=== PATIENT | male | born 1960 | race Caucasian/White ===

== ENCOUNTER 2016-12-19 14:25 | Emergency (ER) | payer OTHER ==
[2016-12-19 17:26] LABS: HEMOGLOBIN 14.6 gm/dl (14.0-17.5); RED BLOOD COUNT 4.59 M/UL (4.20-5.50); WHITE BLOOD COUNT 10.9 K/UL (4.5-11.0)
[2016-12-19 17:46] LABS: BUN/CREATININE RATIO 11 (0-10)
== END 2016-12-19 22:35 | disposition home or self-care (01) ==
LOC: ER1 14:25
PROVIDERS: Specialist/Technologist Athletic Trainer
DX: R07.2 Precordial pain (principal); I25.2 Old myocardial infarction; Z87.891 Personal history of nicotine dependence; Z95.5 Presence of coronary angioplasty implant and graft; Z79.02 Long term (current) use of antithrombotics/antiplatelets; Z79.899 Other long term (current) drug therapy
CPT/HCPCS: 36415; 71010; 80053; 82550; 82553; 83874; 84484; 85025; 93005; 99285

== ENCOUNTER → 2020-09-16 | Day surgery (SDC) | payer OTHER ==
[~2020-09-16] MED LIST: CLOPIDOGREL75 MG PO; COREG3.125 MG PO; LIPITOR10 MG PO; LISINOPRIL10 MG PO; PREDNISONE20 MG PO
== END | disposition home or self-care (01) ==
LOC: OR 06:44
PROVIDERS: Internal Medicine Gastroenterology
PROC: 0DBN8ZX Excision of Sigmoid Colon, Via Natural or Artificial Opening Endoscopic, Diagnostic (ICD-10-PCS; 2020-09-16)
PROC: 0D758ZZ Dilation of Esophagus, Via Natural or Artificial Opening Endoscopic (ICD-10-PCS; principal; 2020-09-16 10:00)
PROC: 0DBK8ZX Excision of Ascending Colon, Via Natural or Artificial Opening Endoscopic, Diagnostic (ICD-10-PCS; 2020-09-16 10:00)
DX: Z12.11 Encounter for screening for malignant neoplasm of colon (principal); K22.2 Esophageal obstruction; K44.9 Diaphragmatic hernia without obstruction or gangrene; K64.1 Second degree hemorrhoids; D12.2 Benign neoplasm of ascending colon; D12.5 Benign neoplasm of sigmoid colon; K21.9 Gastro-esophageal reflux disease without esophagitis; I10 Essential (primary) hypertension; I25.10 Atherosclerotic heart disease of native coronary artery without angina pectoris; Z95.5 Presence of coronary angioplasty implant and graft; Z88.6 Allergy status to analgesic agent; Z79.82 Long term (current) use of aspirin; Z79.899 Other long term (current) drug therapy; Z87.891 Personal history of nicotine dependence; Z20.822 Contact with and (suspected) exposure to COVID-19
CPT/HCPCS: J2001; J2704; J7040

== ENCOUNTER → 2021-02-18 | Outpatient (CLI) | payer OTHER ==
[2021-02-18 09:22] LABS: HEMOGLOBIN 15.1 gm/dl (14.0-17.5); RED BLOOD COUNT 4.7 M/UL (4.20-5.50); WHITE BLOOD COUNT 14.1 K/UL (4.5-11.0)
[2021-02-18 09:48] LABS: BUN/CREATININE RATIO 15 (0-10)
[2021-02-19 07:12] LABS: VITAMIN D, 25-HYDROXY 23.1 ng/mL (30.0-100.0)
[2021-02-19 08:13] LABS: THYROXINE (T4) 5.6 ug/dL (4.5-12.0)
== END ==
LOC: LAB 07:08
PROVIDERS: Nurse Practitioner Family
DX: Z12.5 Encounter for screening for malignant neoplasm of prostate (principal); E78.5 Hyperlipidemia, unspecified; R53.82 Chronic fatigue, unspecified
CPT/HCPCS: 36415; 80053; 80061; 81001; 83036; 84153; 84436; 84443; 84480; 85025

== ENCOUNTER → 2021-03-22 | Outpatient (CLI) | payer OTHER | LOC: KOH-I 08:48 | DX: J33.9 Nasal polyp, unspecified (principal); R93.0 Abnormal findings on diagnostic imaging of skull and head, not elsewhere classified | CPT/HCPCS: 70486 ==

== ENCOUNTER → 2021-04-04 | Outpatient (CLI) | payer OTHER ==
[2021-04-04 08:35] LABS: HEMOGLOBIN 14.9 gm/dl (14.0-17.5); RED BLOOD COUNT 4.62 M/UL (4.20-5.50); WHITE BLOOD COUNT 9.9 K/UL (4.5-11.0)
== END ==
LOC: LAB 07:30
PROVIDERS: Nurse Practitioner Family
DX: D72.829 Elevated white blood cell count, unspecified (principal); E55.9 Vitamin D deficiency, unspecified
CPT/HCPCS: 36415; 85025

== ENCOUNTER → 2021-09-28 | Outpatient (CLI) | payer OTHER ==
[2021-09-29 05:09] LABS: ALBUMIN 4.1 g/dL (3.8-4.9); ALKALINE PHOSPHATASE 98 IU/L (44-121); ALT (SGPT) 12 IU/L (0-44); AST (SGOT) 14 IU/L (0-40); BILIRUBIN, DIRECT 0.14 mg/dL (0.00-0.40); BILIRUBIN, TOTAL 0.4 mg/dL (0.0-1.2); CHOLESTEROL, TOTAL 118 mg/dL (100-199); HDL CHOLESTEROL 29 mg/dL (>39); LDL CHOLESTEROL CALC 71 mg/dL (0-99); LDL/HDL RATIO 2.4 ratio (0.0-3.6); PROTEIN, TOTAL 6.3 g/dL (6.0-8.5); T. CHOL/HDL RATIO 4.1 ratio (0.0-5.0); TRIGLYCERIDES 95 mg/dL (0-149)
== END ==
LOC: LAB 07:16
PROVIDERS: Internal Medicine Cardiovascular Disease
DX: E78.49 Other hyperlipidemia (principal); I11.0 Hypertensive heart disease with heart failure; I50.9 Heart failure, unspecified; R07.9 Chest pain, unspecified; R06.02 Shortness of breath; I48.0 Paroxysmal atrial fibrillation; I25.5 Ischemic cardiomyopathy
CPT/HCPCS: 36415; 80061; 80076

== ENCOUNTER → 2021-11-23 | Outpatient (CLI) | payer OTHER ==
[2021-11-23 08:12] LABS: HEMOGLOBIN 15.1 gm/dl (14.0-17.5); RED BLOOD COUNT 4.67 M/UL (4.20-5.50); WHITE BLOOD COUNT 8.6 K/UL (4.5-11.0)
[2021-11-23 09:35] LABS: BUN/CREATININE RATIO 11 (0-10)
[2021-11-24 07:12] LABS: VITAMIN D, 25-HYDROXY 27.7 ng/mL (30.0-100.0)
[2021-11-24 08:17] LABS: THYROXINE (T4) 6.1 ug/dL (4.5-12.0)
== END ==
LOC: LAB 07:12
PROVIDERS: Nurse Practitioner Family
DX: Z13.1 Encounter for screening for diabetes mellitus (principal); Z12.5 Encounter for screening for malignant neoplasm of prostate; I10 Essential (primary) hypertension; J44.9 Chronic obstructive pulmonary disease, unspecified; E55.9 Vitamin D deficiency, unspecified; E78.5 Hyperlipidemia, unspecified; J12.82 Pneumonia due to coronavirus disease 2019; R53.83 Other fatigue
CPT/HCPCS: 36415; 80053; 80061; 83036; 84153; 84436; 84443; 84480; 85025

== ENCOUNTER → 2021-12-16 | Outpatient (CLI) | payer OTHER | LOC: KOH-I 14:05 | DX: R91.8 Other nonspecific abnormal finding of lung field (principal) | CPT/HCPCS: 71250 ==

== ENCOUNTER → 2022-05-29 | Outpatient (CLI) | payer OTHER ==
[2022-05-29 08:11] LABS: HEMOGLOBIN 15.2 gm/dl (14.0-17.5); RED BLOOD COUNT 4.81 M/UL (4.20-5.50); WHITE BLOOD COUNT 10.2 K/UL (4.5-11.0)
[2022-05-29 08:30] LABS: BUN/CREATININE RATIO 18 (0-10)
[2022-05-30 04:11] LABS: VITAMIN D, 25-HYDROXY 43.2 ng/mL (30.0-100.0)
[2022-05-30 09:14] LABS: HEMOGLOBIN A1C 6.3 % (4.8-5.6)
[2022-05-31 04:11] LABS: CHOLESTEROL, TOTAL 117 mg/dL (100-199); HDL CHOLESTEROL 31 mg/dL (>39); LDL CHOLESTEROL CALC 71 mg/dL (0-99); LDL/HDL RATIO 2.3 ratio (0.0-3.6); T. CHOL/HDL RATIO 3.8 ratio (0.0-5.0); TRIGLYCERIDES 74 mg/dL (0-149)
== END ==
LOC: LAB 07:25
PROVIDERS: Nurse Practitioner Family
DX: J84.10 Pulmonary fibrosis, unspecified (principal); I10 Essential (primary) hypertension; J44.9 Chronic obstructive pulmonary disease, unspecified; E78.5 Hyperlipidemia, unspecified; E11.9 Type 2 diabetes mellitus without complications; R53.83 Other fatigue
CPT/HCPCS: 36415; 80053; 80061; 81001; 83036; 84436; 84443; 84480; 85025